=== PATIENT | male | born 1985 | race American Indian/Alaskan Native ===

== ENCOUNTER 2021-10-04 04:04 | Emergency (ER) | payer OTHER ==
[2021-10-04 04:26] VITALS: BP 147/87
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
[2021-10-04] MEDS ORDERED: KETOROLAC 10 MG TAB PO ONE (07:30)
[2021-10-04] MEDS ORDERED: CYCLOBENZAPRINE 10 MG TAB PO ONE (07:30)
== END 2021-10-04 06:42 | disposition home or self-care (01) ==
LOC: ED 04:04
DX: M25.512 Pain in left shoulder (principal); M54.50 Low back pain, unspecified; V49.9XXA Car occupant (driver) (passenger) injured in unspecified traffic accident, initial encounter; Y93.89 Activity, other specified; Y92.89 Other specified places as the place of occurrence of the external cause; Y99.8 Other external cause status
CPT/HCPCS: 72100; 99283